=== PATIENT | female | born 1935 | race Caucasian/White ===

== ENCOUNTER → 2016-08-17 | Outpatient (CLI) | payer MEDICARE ==
--- NOTE | 2016-08-17 15:15 | CT ---
EXAM DESCRIPTION: CT LUMBAR SPINE WITHOUT IV CONTRAST CLINICAL HISTORY: 81 y/o F, LUMBAR RADICULITIS COMPARISON: None TECHNIQUE: Thin slice axial imaging of the lumbar spine was performed without contrast. The data was reformatted for interpretation. FINDINGS: Vertebral body height, alignment and marrow signal are unremarkable on today's study. T12-L1: No spinal canal or neural foraminal narrowing. L1-L2: No spinal canal or neural foraminal narrowing. L2-L3: There is a circumferential disk osteophyte complex. The midline diameter of the spinal canal is adequate at 1.6 cm. Mild bilateral neural foraminal narrowing. Minimal facet degeneration. L3-4: Circumferential disk osteophyte complex and moderate facet degeneration. Ligamentum flavum buckling noted. The midline diameter spinal canal is adequate at 12 mm. There is moderate bilateral neural foraminal narrowing with definitive exiting left L3 nerve root contact and possible exiting right L3 nerve root contact. L4-5: Mild facet degeneration. Circumferential disk osteophyte complex. The midline diameter of spinal canal is adequate at 1 cm. There is moderate bilateral neural foraminal narrowing. There is likely contact of the exiting left L4 nerve root. L5-S1: Mild facet degeneration. No spinal canal or neural foraminal narrowing. IMPRESSION: Today's exam demonstrates no spinal canal narrowing at any level. Multilevel neural foraminal narrowing as described above with likely contact of the exiting left L3 and L4 nerve roots and possible contact of the exiting right L3 nerve root. These findings could result in radiculopathies if the patient is symptomatic. Electronically signed by: Richard Thompson MD 08/17/2016 15:13
== END ==
LOC: YCFC.O 10:59
PROVIDERS: ATTEND Anesthesiology Pain Medicine
DX: M54.17 Radiculopathy, lumbosacral region (principal); Z79.891 Long term (current) use of opiate analgesic
CPT/HCPCS: 72131; 80354; 80358; 80365; G0479

== ENCOUNTER 2016-09-28 08:00 | Day surgery (SDC) | payer MEDICARE ==
[2016-09-28] MEDS ORDERED: SODIUM CHLORIDE 0.9% 10 ML VIAL ONE (10:04)
[2016-09-28] MEDS ORDERED: methylPREDNISolone ACETATE 80 MG/ML VIAL ONE (10:04)
[2016-09-28] MEDS ORDERED: LIDOCAINE 1% MPF 5 ML VIAL ONE ×2 (10:04→10:10)
[2016-09-28] MEDS ORDERED: SODIUM BICARBONATE VIAL 50 MEQ/50 ML VIAL ONE (10:05)
[2016-09-28 14:04] VITALS: BP 165/81; TEMP 97.5; O2SAT 98
== END 2016-09-28 14:00 | disposition home or self-care (01) ==
LOC: AMB 08:00
PROVIDERS: ATTEND Anesthesiology Pain Medicine
DX: M51.16 Intervertebral disc disorders with radiculopathy, lumbar region (principal); Z88.0 Allergy status to penicillin; Z88.8 Allergy status to other drugs, medicaments and biological substances
CPT/HCPCS: 62323; 76000; J1030

== ENCOUNTER 2016-10-26 05:32 | Day surgery (SDC) | payer MEDICARE ==
[2016-10-26] MEDS ORDERED: methylPREDNISolone ACETATE 80 MG/ML VIAL ONE (11:05)
[2016-10-26] MEDS ORDERED: SODIUM CHLORIDE 0.9% 10 ML VIAL ONE (11:05)
[2016-10-26] MEDS ORDERED: LIDOCAINE 1% MPF 5 ML VIAL ONE (11:05)
[2016-10-26] MEDS ORDERED: SODIUM BICARBONATE VIAL 50 MEQ/50 ML VIAL ONE (11:06)
[2016-10-26 13:47] VITALS: O2SAT 97
[2016-10-26 13:48] VITALS: BP 150/73; TEMP 98.6
== END 2016-10-26 13:40 | disposition home or self-care (01) ==
LOC: AMB 05:32
PROVIDERS: ATTEND Anesthesiology Pain Medicine
DX: M51.16 Intervertebral disc disorders with radiculopathy, lumbar region (principal); Z88.5 Allergy status to narcotic agent; Z88.0 Allergy status to penicillin; Z88.8 Allergy status to other drugs, medicaments and biological substances
CPT/HCPCS: 62323; 76000; J1030

== ENCOUNTER 2016-11-23 11:00 | Day surgery (SDC) | payer MEDICARE ==
[2016-11-23] MEDS ORDERED: SODIUM BICARBONATE VIAL 50 MEQ/50 ML VIAL ONE (11:14)
[2016-11-23] MEDS ORDERED: SODIUM CHLORIDE 0.9% 10 ML VIAL ONE (11:14)
[2016-11-23] MEDS ORDERED: LIDOCAINE 1% MPF 5 ML VIAL ONE (11:14)
[2016-11-23] MEDS ORDERED: methylPREDNISolone ACETATE 80 MG/ML VIAL ONE (11:14)
[2016-11-23 11:19] VITALS: O2SAT 99
[2016-11-23 12:42] VITALS: BP 159/75; TEMP 98
== END 2016-11-23 12:43 | disposition home or self-care (01) ==
LOC: AMB 11:00
PROVIDERS: ATTEND Anesthesiology Pain Medicine
DX: M54.17 Radiculopathy, lumbosacral region (principal); M51.36 Other intervertebral disc degeneration, lumbar region; G89.4 Chronic pain syndrome; Z88.5 Allergy status to narcotic agent; Z88.0 Allergy status to penicillin; Z88.8 Allergy status to other drugs, medicaments and biological substances
CPT/HCPCS: 62323; 76000; J1030

== ENCOUNTER → 2016-12-08 | Outpatient (CLI) | payer MEDICARE | END | disposition home or self-care (01) | LOC: YCFC.O 12:37 | PROVIDERS: ATTEND Anesthesiology Pain Medicine | DX: Z79.891 Long term (current) use of opiate analgesic (principal) ==